=== PATIENT | male | born 1955 | race Caucasian/White ===

== ENCOUNTER 2018-01-22 16:06 | Emergency (ER) | payer BC, OTHER ==
[2018-01-22] MEDS ORDERED: Ketorolac 30 MG/ML SDV IVPUSH ONE (16:26)
[2018-01-22] MEDS ORDERED: Sodium Chloride 0.9% 1,000 ML IV SCH (16:30)
--- NOTE | 2018-01-22 16:32 | EDM.PDOC ---
ED HPI GENERAL MEDICAL PROBLEM - General Chief Complaint: Abdominal Pain Stated Complaint: ABDOMINAL PAIN Time Seen by Provider: 01/22/18 16:18 Source of Information: Reports: Patient History Limitations: Reports: No Limitations - History of Present Illness INITIAL COMMENTS - FREE TEXT/NARRATIVE: c/o L inguinal pain x 2h working, had pushed a heavy machine off of the line at 2 PM, a short while later he had pain in his L groin, no bulge, no pain to the touch had b/l inguinal hernia repair in the past no h/o kidney stones no comparison labs or images in 5min Media feeling better now without meds, not tender on exam, skin is a little damp and clammy, c/w dehydration left lower abdomen Pain Score (Numeric/FACES): 9 - Related Data Allergies Allergy/AdvReac Type Severity Reaction Status Date / Time Penicillins Allergy Hives Verified 01/22/18 16:15 Home Meds: Home Meds NK [No Known Home Meds] 10/15/14 [History] Past Medical History - Past Surgical History GI Surgical History: Reports: Hernia Repair/Other Other GI Surgeries/Procedures: bilateral hernia surgery Sep 2014 Social & Family History - Family History Family Medical History: Unobtainable - Tobacco Use Smoking Status *Q: Former Smoker Used Tobacco, but Quit: Yes Month/Year Tobacco Last Used: 2yrs ago - Caffeine Use Caffeine Use: Reports: Coffee, Soda, Tea - Recreational Drug Use Recreational Drug Use: No ED ROS GENERAL - Review of Systems Review Of Systems: See Below Constitutional: Reports: No Symptoms HEENT: Reports: No Symptoms Respiratory: Reports: No Symptoms Cardiovascular: Reports: No Symptoms Endocrine: Reports: No Symptoms GI/Abdominal: Reports: Abdominal Pain, Other (no radiation, normal BMs) : Reports: No Symptoms Musculoskeletal: Reports: No Symptoms Skin: Reports: No Symptoms Neurological: Reports: No Symptoms Psychiatric: Reports: No Symptoms Hematologic/Lymphatic: Reports: No Symptoms Immunologic: Reports: No Symptoms ED EXAM, GI/ABD - Physical Exam Exam: See Below Exam Limited By: No Limitations General Appearance: Alert, WD/WN, Mild Distress, Other (lying on bed looking uncomfortable when I walked in room with his hand over his LLQ, then moved easily and said he felt better) Nose: Normal Inspection, Normal Mucosa, No Blood Throat/Mouth: Normal Inspection, Normal Lips, Normal Voice, No Airway Compromise Head: Atraumatic, Normocephalic Neck: Normal Inspection, Supple, Non-Tender, Full Range of Motion Respiratory/Chest: No Respiratory Distress, Lungs Clear, Normal Breath Sounds, No Accessory Muscle Use, Chest Non-Tender Cardiovascular: Regular Rate, Rhythm, No Edema, No JVD, No Murmur GI/Abdominal Exam: Soft, Non-Tender, No Distention, No Abnormal Bruit, No Mass Back Exam: Normal Inspection, Full Range of Motion, NT Extremities: Normal Inspection, Normal Range of Motion, Non-Tender, No Pedal Edema Neurological: Alert, Oriented, CN II-XII Intact, Normal Cognition, No Motor/ Sensory Deficits Psychiatric: Normal Affect, Normal Mood Skin Exam: Warm, Dry, Intact, Normal Color, No Rash Lymphatic: No Adenopathy Course - Vital Signs Last Recorded V/S: Last Vital Signs Temp 36.3 C 01/22/18 16:10 Pulse 83 01/22/18 16:10 Resp 18 01/22/18 16:10 BP 142/85 H 01/22/18 16:10 Pulse Ox 100 01/22/18 16:10 - Orders/Labs/Meds Orders: Active Orders 24 hr Category Date Time Status Abdomen Pelvis w Cont [CT] Stat Exams 01/22/18 17:17 Ordered UA W/MICROSCOPIC [URIN] Stat Lab 01/22/18 16:30 Ordered Diatrizoate Zehra/Diatrizoate Na [Gastrografin 37%] Med 01/22/18 17:45 Active 30 ml PO . DIRECTED Sodium Chloride 0.9% [Normal Saline] 1,000 ml Med 01/22/18 16:30 Active IV ASDIRECTED Medication Orders Diatrizoate Meglum/Diatrizoate Sod (Gastrografin 37%) 30 ml PO . [facility]ED [facility] Last Admin: 01/22/18 19:09 Dose: 30 ml Sodium Chloride (Normal Saline) 1,000 mls @ 999 mls/hr IV ASDIRECTED [facility] Last Admin: 01/22/18 16:48 Dose: 999 mls/hr Labs: Laboratory Tests 01/22/18 01/22/18 01/22/18 Range/Units 16:30 16:45 16:45 WBC 12.5 H (4.5-12.0) X10-3/uL RBC 4.96 (4.30-5.75) x10(6)uL Hgb 14.6 (11.5-15.5) g/dL Hct 43.4 (30.0-51.3) % MCV 87.5 (80-96) fL MCH 29.4 (27.7-33.6) pg MCHC 33.7 (32.2-35.4) g/dL RDW 12.4 (11.5-15.5) % Plt Count 181 (125-369) X10(3)uL MPV 9.2 (7.4-10.4) fL Neut % (Auto) 80.7 (46-82) % Lymph % (Auto) 13.2 (13-37) % Mcmullen % (Auto) 4.7 (4-12) % Eos % (Auto) 1 (1.0-5.0) % Baso % (Auto) 1 (0-2) % Neut # (Auto) 10.0 H (1.6-8.3) # Lymph # (Auto) 1.7 (0.6-5.0) # Mcmullen # (Auto) 0.6 (0.0-1.3) # Eos # (Auto) 0.1 (0.0-0.8) # Baso # (Auto) 0.1 (0.0-0.2) # Sodium 142 (135-145) mmol/L Potassium 3.7 (3.5-5.3) mmol/L Chloride 104 (100-110) mmol/L Carbon Dioxide 25 (21-32) mmol/L BUN 17 (7-18) mg/dL Creatinine 1.1 (0.70-1.30) mg/dL Est Cr Clr Drug Dosing 76.06 mL/min Estimated GFR (MDRD) > 60 (>60) BUN/Creatinine Ratio 15.5 (9-20) Glucose 131 H (80-116) mg/dL Calcium 9.1 (8.6-10.2) mg/dL Total Bilirubin 0.4 (0.1-1.3) mg/dL AST 20 (5-25) IU/L ALT 17 (12-36) U/L Alkaline Phosphatase 66 (56-112) IU/L C-Reactive Protein (0.5-0.9) mg/dL Total Protein 8.2 H (6.0-8.0) g/dL Albumin 3.9 (3.2-4.6) g/dL Globulin 4.3 g/dL Albumin/Globulin Ratio 0.9 Urine Color Yellow (YELLOW) Urine Appearance Clear (CLEAR) Urine pH 5.0 (5.0-6.5) Ur Specific [place] 1.025 (1.010-1.025) Urine Protein Negative (NEGATIVE) mg/dL Urine Glucose (UA) Normal (NEGATIVE) mg/dL Urine Ketones 15 H (NEGATIVE) mg/dL Urine Occult Blood Large H (NEGATIVE) Urine Nitrite Negative (NEGATIVE) Urine Bilirubin Small H (NEGATIVE) Urine Urobilinogen 1 H (NEGATIVE) mg/dL Ur Leukocyte Esterase Negative (NEGATIVE) Urine RBC 0-5 (0) Urine WBC 0-5 (0) Ur Squamous Epith Cells Occasional (NS,R,O) Urine Bacteria Rare H (NS) Urine Mucus Few H (NS) 01/22/18 Range/Units 16:45 WBC (4.5-12.0) X10-3/uL RBC (4.30-5.75) x10(6)uL Hgb (11.5-15.5) g/dL Hct (30.0-51.3) % MCV (80-96) fL MCH (27.7-33.6) pg MCHC (32.2-35.4) g/dL RDW (11.5-15.5) % Plt Count (125-369) X10(3)uL MPV (7.4-10.4) fL Neut % (Auto) (46-82) % Lymph % (Auto) (13-37) % Mcmullen % (Auto) (4-12) % Eos % (Auto) (1.0-5.0) % Baso % (Auto) (0-2) % Neut # (Auto) (1.6-8.3) # Lymph # (Auto) (0.6-5.0) # Mcmullen # (Auto) (0.0-1.3) # Eos # (Auto) (0.0-0.8) # Baso # (Auto) (0.0-0.2) # Sodium (135-145) mmol/L Potassium (3.5-5.3) mmol/L Chloride (100-110) mmol/L Carbon Dioxide (21-32) mmol/L BUN (7-18) mg/dL Creatinine (0.70-1.30) mg/dL Est Cr Clr Drug Dosing mL/min Estimated GFR (MDRD) (>60) BUN/Creatinine Ratio (9-20) Glucose (80-116) mg/dL Calcium (8.6-10.2) mg/dL Total Bilirubin (0.1-1.3) mg/dL AST (5-25) IU/L ALT (12-36) U/L Alkaline Phosphatase (56-112) IU/L C-Reactive Protein 2.1 H (0.5-0.9) mg/dL Total Protein (6.0-8.0) g/dL Albumin (3.2-4.6) g/dL Globulin g/dL Albumin/Globulin Ratio Urine Color (YELLOW) Urine Appearance (CLEAR) Urine pH (5.0-6.5) Ur Specific [place] (1.010-1.025) Urine Protein (NEGATIVE) mg/dL Urine Glucose (UA) (NEGATIVE) mg/dL Urine Ketones (NEGATIVE) mg/dL Urine Occult Blood (NEGATIVE) Urine Nitrite (NEGATIVE) Urine Bilirubin (NEGATIVE) Urine Urobilinogen (NEGATIVE) mg/dL Ur Leukocyte Esterase (NEGATIVE) Urine RBC (0) Urine WBC (0) Ur Squamous Epith Cells (NS,R,O) Urine Bacteria (NS) Urine Mucus (NS) Meds: Medications Generic Name Dose Route Start Last Admin Trade Name Freq PRN Reason Stop Dose Admin Diatrizoate Meglum/Diatrizoate Sod 30 ml 01/22/18 17:45 01/22/18 19:09 Gastrografin 37% PO 30 ml . DIRECTED YOBANY Administration Sodium Chloride 1,000 mls @ 999 mls/hr 01/22/18 16:30 01/22/18 16:48 Normal Saline IV 999 mls/hr ASDIRECTED YOBANY Administration Discontinued Medications Generic Name Dose Route Start Last Admin Trade Name Freq PRN Reason Stop Dose Admin Iopamidol 100 ml 01/22/18 17:32 01/22/18 19:09 Isovue-370 (76%) IV 01/22/18 17:33 100 ml . DIRECTED ONE Administration Ketorolac Tromethamine 30 mg 01/22/18 16:26 01/22/18 16:47 Toradol IVPUSH 01/22/18 16:27 30 mg ONETIME ONE Administration - Re-Assessments/Exams Free Text/Narrative Re-Assessment/Exam: 01/22/18 20:48 pt has felt perfectly fine since a short while after arriving in ED CT abd/pelvis with PO and IV contrast shows 3 mm density in bladder at L UVJ c/ w recently passed stone, also small soft tissue density at bladder base pt reluctantly agrees to see a urologist pt was a smoker and he was informed that he has inc'd risk of bladder CA pt eager to go home, want to work tomorrow Departure - Departure Time of Disposition: 20:50 Disposition: Home, Self-Care 01 Condition: Good Clinical Impression: Kidney stone on left side, Ureter colic - Discharge Information Instructions: Kidney Stones Referrals: PCP,None [Primary Care Provider] - Forms: ED Department Discharge Additional Instructions: Strain your urine and bring in the stone to your urologist or doctor. See a urologist in the next several week for evaluation of a small soft tissue density at the bladder base possibly related to the underlying prostate. Return to ED if you feel worse. - My Orders Last 24 Hours: My Active Orders 01/22/18 16:30 UA W/MICROSCOPIC [URIN] Stat Sodium Chloride 0.9% [Normal Saline] 1,000 ml IV ASDIRECTED 01/22/18 17:17 Abdomen Pelvis w Cont [CT] Stat 01/22/18 17:45 Diatrizoate Zehra/Diatrizoate Na [Gastrografin 37%] 30 ml PO . DIRECTED - Assessment/Plan Last 24 Hours: My Active Orders 01/22/18 16:30 UA W/MICROSCOPIC [URIN] Stat Sodium Chloride 0.9% [Normal Saline] 1,000 ml IV ASDIRECTED 01/22/18 17:17 Abdomen Pelvis w Cont [CT] Stat 01/22/18 17:45 Diatrizoate Zehra/Diatrizoate Na [Gastrografin 37%] 30 ml PO . DIRECTED
[2018-01-22] MEDS ORDERED: Iopamidol 755 Mg/ML 100 ML Bottle IV ONE (17:32)
[2018-01-22] MEDS ORDERED: Diatrizoate Meglumine/Diatrizoate Sodium 37% 30 ML Bottle PO SCH (17:45)
[2018-01-22 21:11] VITALS: BP 129/86
== END 2018-01-22 21:09 | disposition home or self-care (01) ==
LOC: FB.ED 16:06
DX: N20.2 Calculus of kidney with calculus of ureter (principal); Z87.891 Personal history of nicotine dependence; Z88.0 Allergy status to penicillin
CPT/HCPCS: 36415; 74177; 80053; 81001; 85025; 86140; 96361; 96374; 99284; J1885; J7030; Q9963; Q9967